=== PATIENT | female | born 1965 | race Hispanic/Latino ===

== ENCOUNTER 2016-09-25 07:10 | Day surgery (SDC) | payer MEDICARE ==
[2016-07-25 15:41] VITALS: BMI 25.7
[2016-09-25 07:32] LABS: ADD MANUAL DIFF? NO
[2016-09-25 07:38] LABS: BASO # 0.02 K/mm3 (0.0-2.0); BASO % 0.2 % (0.0-3.0); EOS # 0.2 (0.0-0.7); EOS % 1.8 % (1.5-5.0); GRAN # 6.03 (1.4-6.5); GRAN % 70.9 % (50.0-68.0); HEMATOCRIT 41.2 % (36.0-48.0); LYMPH # 1.7 (1.2-3.4); LYMPH % 20.3 % (22.0-35.0); MEAN CELL VOLUME 91.2 fL (80.0-105.0); MEAN CORPUSCULAR HEMOGLOBIN 30.5 pg (25.0-35.0); MEAN CORPUSCULAR HGB CONC 33.5 g/dl (31.0-37.0); MEAN PLATELET VOLUME 9.4 fl (7.0-11.0); MONO # 0.6 (0.1-0.6); MONO % 6.8 % (1.0-6.0); PLATELET COUNT 323 10^3/uL (120.0-450.0); WHITE BLOOD COUNT 8.5 10^3/ul (4.5-11.0)
[2016-09-25 07:49] LABS: INR 1.06 (0.93-1.08); PARTIAL THROMBOPLASTIN TIME 27.9 Seconds (23.7-30.8)
[2016-09-25 08:13] LABS: ALKALINE PHOSPHATASE 94 U/L (38-133); ALT/SGPT 20 U/L (7-56); AST/SGOT 30 U/L (15-39); BILIRUBIN,TOTAL 0.4 mg/dL (0.2-1.3); BLOOD UREA NITROGEN 14 mg/dL (7-21); CALCIUM 9.2 mg/dL (8.4-10.5); CARBON DIOXIDE 34 mmol/L (21-33); CHLORIDE 101 mmol/L (95-110); GFR AFRICAN-AMERICAN > 60; GLUCOSE,RANDOM 114 mg/dL (70-110); POTASSIUM 4.1 mmol/L (3.6-5.0); SODIUM 143 mmol/L (132-148); TOTAL PROTEIN 8.3 g/dL (5.8-8.3)
[2016-09-25] MEDS ORDERED: Methylene Blue 10 mg/ml (1ml) Inj ONE (08:13)
[2016-09-25] MEDS ORDERED: Lidocaine 2% Inj (20ml) ONE (09:26)
[2016-09-25] MEDS ORDERED: Propofol 10 mg/ml Inj (20 ML) ONE (09:27)
[2016-09-25] MEDS ORDERED: Lactated Ringer's 1,000 ML IV SCH (09:45)
--- NOTE | 2016-09-25 11:45 | CARD ---
APPROVED REPORT EKG Measurement Heart [id number] CT 146P19 [id number] <Conclusion> Normal sinus rhythm Normal ECG
[2016-09-27 15:25] VITALS: O2SAT 98
[2016-09-27 15:26] VITALS: BP 138/77; PULSE 74; RESP 16; TEMP 98.5
== END 2016-09-25 11:23 | disposition home or self-care (01) ==
LOC: ENDO 07:10
PROVIDERS: ATTEND Internal Medicine Gastroenterology
DX: K63.5 Polyp of colon (principal); K57.30 Diverticulosis of large intestine without perforation or abscess without bleeding; K64.8 Other hemorrhoids
CPT/HCPCS: 36415; 45330; 80053; 85025; 85610; 85730; 93005; J2704; J7040; J7120

== ENCOUNTER 2016-10-17 10:24 | Day surgery (SDC) | payer MEDICARE ==
[2016-07-25 15:41] VITALS: BMI 25.7
[2016-10-17 10:57] LABS: ADD MANUAL DIFF? NO
[2016-10-17 11:07] LABS: BASO # 0.03 K/mm3 (0.0-2.0); BASO % 0.3 % (0.0-3.0); EOS # 0.3 (0.0-0.7); EOS % 3.1 % (1.5-5.0); GRAN # 5.59 (1.4-6.5); GRAN % 63.4 % (50.0-68.0); HEMATOCRIT 44.7 % (36.0-48.0); LYMPH # 2.3 (1.2-3.4); LYMPH % 26.3 % (22.0-35.0); MEAN CELL VOLUME 89.9 fL (80.0-105.0); MEAN CORPUSCULAR HEMOGLOBIN 31.2 pg (25.0-35.0); MEAN CORPUSCULAR HGB CONC 34.7 g/dl (31.0-37.0); MEAN PLATELET VOLUME 9.4 fl (7.0-11.0); MONO # 0.6 (0.1-0.6); MONO % 6.9 % (1.0-6.0); PLATELET COUNT 294 10^3/uL (120.0-450.0); RED CELL DISTRIBUTION WIDTH 12.9 % (11.5-14.5); WHITE BLOOD COUNT 8.8 10^3/ul (4.5-11.0)
[2016-10-17 11:14] LABS: ALKALINE PHOSPHATASE 103 U/L (38-133); ALT/SGPT 30 U/L (7-56); AST/SGOT 23 U/L (15-39); BILIRUBIN,TOTAL 0.6 mg/dL (0.2-1.3); BLOOD UREA NITROGEN 17 mg/dL (7-21); CALCIUM 9.9 mg/dL (8.4-10.5); CARBON DIOXIDE 27 mmol/L (21-33); CHLORIDE 103 mmol/L (98-107); GFR AFRICAN-AMERICAN > 60; GLUCOSE,RANDOM 103 mg/dL (70-110); POTASSIUM 4.3 mmol/L (3.6-5.0); SODIUM 142 mmol/L (132-148); TOTAL PROTEIN 9.3 g/dL (5.8-8.3)
[2016-10-17 11:30] LABS: INR 1.02 (0.93-1.08); PARTIAL THROMBOPLASTIN TIME 28.9 Seconds (23.7-30.8)
[2016-10-17] MEDS ORDERED: Methylene Blue 10 mg/ml (1ml) Inj ONE (12:31)
[2016-10-17] MEDS ORDERED: Midazolam 2 MG/2 ML VIAL ONE (12:47)
[2016-10-17] MEDS ORDERED: Propofol 10 mg/ml Inj (20 ML) ONE ×8 (12:47→16:21)
[2016-10-17] MEDS ORDERED: Glucagon Recombinant 1 mg Inj ONE (14:42)
[2016-10-17] MEDS ORDERED: Sodium Chloride 0.9% 1,000 ML IV SCH (16:45)
[2016-10-17 17:13] VITALS: O2SAT 97
[2016-10-17 17:39] VITALS: BP 133/73; PULSE 76; RESP 20; TEMP 97
== END 2016-10-17 18:30 | disposition home or self-care (01) ==
LOC: ENDO 10:24
PROVIDERS: ATTEND Internal Medicine Gastroenterology
DX: D12.5 Benign neoplasm of sigmoid colon (principal); D12.2 Benign neoplasm of ascending colon; K63.5 Polyp of colon; K57.30 Diverticulosis of large intestine without perforation or abscess without bleeding; K64.8 Other hemorrhoids
CPT/HCPCS: 36415; 45390; 80053; 85025; 85610; 85730; 86850; 86900; 88305; J1610; J2001; J2250; J2704; J3010; J7030; J7040 ×2; Q9968

== ENCOUNTER 2017-02-27 08:37 | Day surgery (SDC) | payer MEDICARE ==
[2017-02-19 14:07] VITALS: BMI 26.2
[2017-02-27] MEDS ORDERED: Lidocaine 2% Inj (20ml) ONE (11:03)
[2017-02-27] MEDS ORDERED: Propofol 10 mg/ml Inj (20 ML) ONE ×2 (11:03→11:21)
[2017-02-27] MEDS ORDERED: Glucagon Recombinant 1 mg Inj ONE (11:15)
[2017-02-27] MEDS ORDERED: Sodium Chloride 0.9% 1,000 ML IV SCH (12:00)
[2017-02-27 12:38] VITALS: BP 110/62; PULSE 74; RESP 16; TEMP 98.5; O2SAT 99
== END 2017-02-27 12:58 | disposition home or self-care (01) ==
LOC: ENDO 08:37
PROVIDERS: ATTEND Internal Medicine Gastroenterology
DX: K63.5 Polyp of colon (principal); K62.1 Rectal polyp; K57.30 Diverticulosis of large intestine without perforation or abscess without bleeding; K64.8 Other hemorrhoids
CPT/HCPCS: 45380; 45381; 45385; 88305; J1610; J2704; J7030; J7040 ×2